=== PATIENT | female | born 1965 | race Caucasian/White ===

== ENCOUNTER 2020-09-13 10:22 | Outpatient (REF) | payer OTHER, SELFPAY ==
--- NOTE | 2020-09-13 10:27 | MM_ITS ---
EXAMINATION: MM SCREENING DIGITAL BREAST TOMOSYNTHESIS, BILATERAL CLINICAL INFORMATION: Screening. Asymptomatic. The lifetime risk of breast cancer based on the Tyrer-Cuzick Model is 18%. COMPARISON: Mammography: 09/08/2019, 08/05/2018, 07/16/2017 TECHNIQUE: Digital breast tomosynthesis is performed in both the craniocaudal and mediolateral oblique views along with computer-aided detection (CAD). Synthesized 2D images are generated from the tomosynthesis. Additional left CC view is provided. FINDINGS: There are scattered areas of fibroglandular density (ACR BI-RADS breast composition Category b). There are no significant masses, abnormal calcifications, or other abnormalities. Parenchymal pattern is similar to prior studies. No developing density. No significant changes. MM/MM tomosynthesis screening BI IMPRESSION: No mammographic evidence of malignancy. ASSESSMENT: BI-RADS 1: Negative RECOMMENDATION: Routine annual mammography screening. This patient's information was entered into a reminder system with a target due date for their next mammogram.
== END 2020-09-13 10:23 | disposition home or self-care (01) ==
LOC: HO.MAMMO 10:22
PROVIDERS: Visit Provider Obstetrics & Gynecology Gynecology
DX: Z12.31 Encounter for screening mammogram for malignant neoplasm of breast (principal)
CPT/HCPCS: 77063; 77067

== ENCOUNTER 2021-09-19 10:38 | Outpatient (REF) | payer OTHER, SELFPAY ==
--- NOTE | ~2021-09-19 | MM_ITS ---
EXAMINATION: MM SCREENING DIGITAL BREAST TOMOSYNTHESIS, BILATERAL CLINICAL INFORMATION: Screening. Asymptomatic. The lifetime risk of breast cancer based on the Tyrer-Cuzick Model is 18%. COMPARISON: Mammography: 09/13/2020, 09/08/2019, 08/05/2018 TECHNIQUE: Digital breast tomosynthesis is performed in both the craniocaudal and mediolateral oblique views along with computer-aided detection (CAD). Synthesized 2D images are generated from the tomosynthesis. FINDINGS: There are scattered areas of fibroglandular density (ACR BI-RADS breast composition Category b). There are no significant masses, abnormal calcifications, or other abnormalities. There are no significant changes from prior studies. MM/MM tomosynthesis screening BI IMPRESSION: No mammographic evidence of malignancy. ASSESSMENT: BI-RADS 1: Negative RECOMMENDATION: Routine annual mammography screening. This patient's information was entered into a reminder system with a target due date for their next mammogram.
== END 2021-09-19 10:39 | disposition home or self-care (01) ==
LOC: HO.MAMMO 10:38
PROVIDERS: PCP Physician Assistant Medical; Visit Provider Physician Assistant Medical
DX: Z12.31 Encounter for screening mammogram for malignant neoplasm of breast (principal)
CPT/HCPCS: 77063; 77067

== ENCOUNTER 2022-09-25 10:24 | Outpatient (REF) | payer BC, SELFPAY ==
--- NOTE | ~2022-09-25 | MM_ITS ---
EXAMINATION: MM SCREENING DIGITAL BREAST TOMOSYNTHESIS, BILATERAL CLINICAL INFORMATION: Screening. Asymptomatic. Family history breast cancer, sister. The lifetime risk of breast cancer based on the Tyrer-Cuzick Model is 19.5%. COMPARISON: Mammography: 09/19/2021, 09/13/2020, 09/08/2019, 08/05/2018 TECHNIQUE: Digital breast tomosynthesis is performed in both the craniocaudal and mediolateral oblique views along with computer-aided detection (CAD). Synthesized 2D images are generated from the tomosynthesis. FINDINGS: There are scattered areas of fibroglandular density (ACR BI-RADS breast composition Category b). There are no significant masses, abnormal calcifications, or other abnormalities. Parenchymal pattern is similar to prior studies. There is no developing density or architectural abnormality. The axilla and skin contours are unremarkable. No significant changes. MM/MM tomosynthesis screening BI IMPRESSION: No mammographic evidence of malignancy. ASSESSMENT: BI-RADS 1: Negative RECOMMENDATION: Routine annual mammography screening. This patient's information was entered into a reminder system with a target due date for their next mammogram.
== END 2022-09-25 10:25 | disposition home or self-care (01) ==
LOC: HO.MAMMO 10:24
PROVIDERS: PCP Physician Assistant Medical; Visit Provider Physician Assistant Medical
DX: Z12.31 Encounter for screening mammogram for malignant neoplasm of breast (principal)
CPT/HCPCS: 77063; 77067

== ENCOUNTER 2023-10-08 10:18 | Outpatient (REF) | payer BC, SELFPAY ==
--- NOTE | ~2023-10-08 | MM_ITS ---
EXAMINATION: MM SCREENING DIGITAL BREAST TOMOSYNTHESIS, BILATERAL CLINICAL INFORMATION: Screening scheduled. At the time of the screening examination, the patient indicated that she has had lateral right breast pain for one month. She denies lumps and other symptoms. The patient wished to proceed with the screening study on the day of the exam. COMPARISON: Mammography: This study is compared with prior exams dating back to 2019. TECHNIQUE: Digital breast tomosynthesis is performed in both the craniocaudal and mediolateral oblique views along with computer-aided detection (CAD). Synthesized 2D images are generated from the tomosynthesis. FINDINGS: There are scattered areas of fibroglandular density (ACR BI-RADS breast composition Category b). There is an asymmetry in the central portion of the right breast. Additional mammographic and targeted sonographic evaluation of this finding is advised. When the patient returns for diagnostic imaging, if she should have additional a whole breast ultrasound on the right given her symptomatology lateral breast pain. In the left breast, there are no significant masses, abnormal calcifications, or other abnormalities. MM/MM tomosynthesis screening BI IMPRESSION: Asymmetry of the right breast warrants additional mammographic and sonographic evaluation. When the patient returns for diagnostic imaging, if she should have additional a whole breast ultrasound on the right given her symptomatology lateral breast pain. No mammographic signs of malignancy left breast. ASSESSMENT: BI-RADS BI-RADS 0 - Incomplete: Needs additional Imaging. RECOMMENDATION: 1. Additional views of the right breast 2. Right breast ultrasound for the patient's lateral breast pain is advised. 3. Radiology department staff will contact the patient for additional imaging. Additional Imaging required This examination should not preclude the clinical evaluation of a suspicious palpable abnormality. This patient's information was entered into a reminder system with a target due date for their next mammogram.
== END 2023-10-08 10:19 | disposition home or self-care (01) ==
LOC: HO.MAMMO 10:18
PROVIDERS: PCP Physician Assistant Medical; Visit Provider Physician Assistant Medical
DX: Z12.31 Encounter for screening mammogram for malignant neoplasm of breast (principal)
CPT/HCPCS: 77063; 77067

== ENCOUNTER → 2023-10-08 10:30 | Outpatient (BNV) | payer BC, SELFPAY | PROVIDERS: PCP Physician Assistant Medical; Visit Provider Radiology Diagnostic Radiology | DX: Z12.31 Encounter for screening mammogram for malignant neoplasm of breast (principal) | CPT/HCPCS: 77063; 77067 ==

== ENCOUNTER 2023-11-14 13:53 | Outpatient (REF) | payer BC, SELFPAY ==
--- NOTE | ~2023-11-14 | MM_ITS ---
EXAMINATION: MM DIAGNOSTIC DIGITAL BREAST TOMOSYNTHESIS, RIGHT US BREAST LIMITED, RIGHT MAMMOGRAPHY: CLINICAL INFORMATION: Diagnostic from screening for central asymmetry right breast. Patient also complaining of right breast pain laterally 7-10 o'clock axis. COMPARISON: Mammography: 10/08/2023, 09/25/2022, 09/19/2021, 09/13/2020, and dating back to 2013. TECHNIQUE: Digital breast tomosynthesis is performed in the following views: Right 3-D digital full-field mediolateral view, 3-D spot compression right cc views x2, and MLO views x1. FINDINGS: There are scattered areas of fibroglandular density (ACR BI-RADS breast composition Category b). The central asymmetry seen on mammography within the central right breast does not persist on diagnostic views and is consistent with overlap of normal fibroglandular tissues (summation artifact). No persistent mass, suspicious calcifications, or areas of architectural distortion. Mildly prominent islands of normal tissue noted in the central right breast, which have similar configuration to numerous priors. ULTRASOUND: CLINICAL INFORMATION: Diagnostic from screening for central asymmetry right breast. Patient also complaining of right breast pain laterally 7-10 o'clock axis. COMPARISON: None contributory. TECHNIQUE: Targeted sonographic evaluation was performed using a high frequency linear transducer. Right breast was scanned to include the central region as well as the 6:00 to 2:00 axes. Selected archived documentation. FINDINGS: RIGHT BREAST: There is a mixture of fatty and fibroglandular tissue. No suspicious mass is seen. There is no pathologic acoustic shadowing. There is no cystic abnormality. Specifically, there is no correlation on sonography with lateral breast pain or a central asymmetry. MM/MM tomosynthesis added views R IMPRESSION: No findings suspicious for malignancy within the right breast. Central asymmetry does not persist on diagnostic views and is consistent with summation artifact. There is no ultrasonographic or mammographic correlate to the lateral breast pain. Recommend clinical management. Otherwise, recommend resuming routine annual screening mammography. OVERALL ASSESSMENT: Mammography: BI-RADS 2 - Benign Findings Ultrasound: BI-RADS 2 - Benign Findings RECOMMENDATION: 1 year F/U Results were provided to the patient at time of visit by the technologist. This patient's information was entered into a reminder system with a target due date for their next mammogram.
== END 2023-11-14 13:54 | disposition home or self-care (01) ==
LOC: HO.MAMMO 13:53
PROVIDERS: PCP Physician Assistant Medical; Visit Provider Physician Assistant Medical
DX: R92.8 Other abnormal and inconclusive findings on diagnostic imaging of breast (principal)
CPT/HCPCS: 76642; 77061; 77065

== ENCOUNTER → 2023-11-14 14:00 | Outpatient (BNV) | payer BC, SELFPAY | PROVIDERS: PCP Physician Assistant Medical; Visit Provider Radiology Diagnostic Radiology | DX: N64.89 Other specified disorders of breast (principal) | CPT/HCPCS: 76642; 77061; 77065 ==

== ENCOUNTER 2025-08-03 10:11 | Outpatient (REF) | payer BC, SELFPAY ==
--- OUTSIDE RECORDS SUMMARY | 2025-08-03 10:15 | XMS_ITS ---
Author Name [facility] Organization Unknown History of Medication Use Medication Directions Dispensed Refills Start Date End Date Status Zepbound 7.5 mg/0.5 mL injection INJECT 1 PEN (7.5 MG TOTAL) UNDER THE SKIN ONCE A WEEK. 05/06/20 active valsartan (DIOVAN) 320 mg tablet Take 1 tablet (320 mg total) by mouth 1 (one) time each day. 08/29/20 active doxycycline (VIBRAMYCIN) 100 MG capsule Take 1 capsule (100 mg total) by mouth 2 (two) times a day. Take each dose with a full glass of water, avoid laying down for one hour after each dose. Avoid direct sunlight. 08/27/202022 active albuterol (PROVENTIL HFA; VENTOLIN HFA) 108 (90 Base) MCG/ACT inhaler Inhale 2 puffs 4 times daily (every 6 hours) as needed for wheezing or shortness of breath. 08/27/20 active methylPREDNISolone (MEDROL DOSEPAK) 4 MG tablet Take one row every morning with food X 6 days. Avoid NSAIDs like motrin. Tylenol is ok if needed 08/27/20 active proMETHAZINE-dextrome thorphan (proMETHAZINE-DM) 6.25-15 MG/5ML syrup Take 5 mL by mouth every 4 (four) hours as needed for cough. Caution can be sedating 08/27/20 active albuterol sulfateInhale 2 (inhalation) every 4 hours [id number] aerosol inhalerevery 4 hoursinhalationNo set duration recordedNo set duration amount raikkmneplpful39aia/ac tuation 07/19/20 active promethazine-DMTake 5 ml (oral) every 4 [id number] y 4 hoursoralNo set duration recordeddaysactive6.25 -15mg/5 mL 09/19/20 23 active prednisoneTake 2 tablet (oral) 1 time per day for 5 [id number] time per djejdwg3bvgdgewqspnbd1 0mg 07/19/20 23 suspended Semaglutide-Weight Management (Wegovy) 0.25 MG/0.5ML Solution Auto-injector Inject 0.25 mg under the skin once a week. 01/27/20 active valsartanTake (oral)[id number] frequency recordedoralNo set duration recordedNo set duration amount tuzgcbvtopyedv250yg 01/16/20 active furosemideTake (oral)[id number] frequency recordedoralNo set duration recordedNo set duration amount njasmuwbpvzxqe88pd 01/16/20 active furosemide (LASIX) 20 MG tablet Take 1 tablet (20 mg total) by mouth every morning. 01/16/20 23 active valsartan (DIOVAN) 320 MG tablet TAKE 1 TABLET BY MOUTH EVERY DAY 01/16/20 23 active calcipotriene (DOVONEX) 0.005 % ointment APPLY TO RASH FEET AND ELBOWS 2 TIMES A DAY 01/05/20 23 active halobetasol (ULTRAVATE) 0.05 % ointment APPLY TO FEET 2 TIMES A DAY WITH CALCIPOTRIENE 01/05/20 23 active Insulin Pen Needle (Pen [place]) 32G X 4 MM Misc use once weekly with Ozempic 02/16/20 22 active AugmentinTake 1 tabl et (Oral) 2 times per day for 7 [id number] times per fsdBtjf0jwwopooaoglub3 75-125mg 12/05/19 22 suspended ketoconazole (NIZORAL) 2 % shampoo APPLY TO SCALP EVERY OTHER DAY FOR 5 MINUTES AND RINSE. 07/18/20 21 active ascorbic acid (VITAMIN C) 250 MG tablet Take 1 tablet by mouth daily. 02/17/20 21 active cholecalciferol (CHOLECALCIFEROL) 25 MCG (1000 UT) tablet Take 1 tablet by mouth daily. 02/17/20 21 active Multiple Vitamin (Multi-Vitamin) tablet Take 1 tablet by mouth daily. 02/17/20 21 active triamcinolone (KENALOG) 0.1 % cream APPLY AND RUB IN A THIN FILM TO AFFECTED AREA ON HANDS TID PRN 02/17/20 21 active methocarbamolTake 2 tablet (oral) 3 times per day for 7 [id number] times per imianbs9rpsbfxygnyrvg4 00mg 12/23/19 20 suspended NaprosynTake 1 (oral ) 2 times per day for 5 [id number] times per lqycgyt6zfsdvmwjoamnm0 00mg 12/23/19 20 suspended amlodipineTakeNo bello e recordedNo form recordedNo frequency recordedNo route recordedNo set duration recordedNo set duration amount recordedsuspendedNo dosage strength recordedNo dosage strength units of measure recorded suspended [place] 3-6-9TakeNo da te recordedNo form recordedNo frequency recordedNo route recordedNo set duration recordedNo set duration amount recordedactiveNo dosage strength recordedNo dosage strength units of measure recorded active amLODIPine (NORVASC) 10 mg tablet Take 10 mg by mouth daily. active amLODIPine (NORVASC) 10 MG tablet Take 10 mg by mouth. ac tive furosemide (Lasix) 20 mg tablet Take by mouth. active omega-3 fatty acids (FISH OIL) 1000 MG Cap capsule Take 1,000 mg by mouth 4 (four) times a day. active omega-3 fatty acids (Super [place]-3) 1,000 mg capsule Take 40,000 mg by mouth daily. active Problems Problem Status Onset Date Problem Type Date of Resolution Source COVID-19 active 2023-12-30 3 ProblemAct [facility] hypertension active ProblemAct [facility] Varicose veins of lower extremity active 2023-11-01 6 ProblemAct [facility] Anal fissure active EncounterDiagnosisAct [facility] Anxiety active 2022-12-29 8 ProblemAct [facility] Liver enzyme elevation active 2022-12-29 8 ProblemAct [facility] Vitamin D deficiency active 2022-12-29 8 ProblemAct [facility] Angina pectoris active 2022-12-29 8 [facility]Act [facility] Screen for colon cancer active 2021-03-31 1 ProblemAct [facility] Edema active 2022-12-29 8 [facility]Act [facility] Acquired hypertriglyceridemia active 2022-12-29 8 ProblemAct [facility] SOBOE (shortness of breath on exertion) active 2022-12-29 8 ProblemAct [facility] Hypertension, benign active 2022-12-29 8 ProblemAct [facility] Psoriasis vulgaris active 2022-12-29 8 ProblemAct [facility] Morbid obesity active 2022-12-29 8 ProblemAct [facility] Encounters Encounter Type Encounter Reason Primary Diagnosis Location Date Ambulatory New Patient New Patient [facility] 06/11/2025 Ambulatory [facility] 03/12/2025 Ambulatory Gas pain Gas pain [facility] 09/21 Ambulatory Essential (primary) hypertension Essential (primary) hypertension [facility] 09/19/2024 Ambulatory Acute bronchitis due to other specified organisms Acute bronchitis due to other specified organisms [facility] 08/27/2023 Ambulatory [facility] 07/19/2023 Ambulatory [facility] 01/15/2023 Care Team Organization Name Specialty Phone Email Start Date End [facility] 03/13/2025 025 [facility] 03/12/2025 04/10/2025 [facility]17 [facility] 09/21 [id number] 09/20/2024 03/19/2025 [facility] 04/19/2024 03/19/2025 [facility] 01/25/2024 [facility] Muna Chavez - PCP Support [facility] 01/11/2024 [facility] GIRISH CHENG Primary Care 11/20/2023 [facility] 07/19/2023 07/19/2023 [facility] 07/19/2023 [facility] MUNA CHAEVZ Primary Care 01/15/202304/10 [facility] 01/15/2023 01/15/2023 [facility] 10/01/2022 06/18/2024
--- OUTSIDE RECORDS SUMMARY | 2025-08-03 10:15 | XMS_ITS | Clinical Summary ---
Author Organization [facility] Address [address] [place] [address] Care Team Providers Care Vice President Regulatory Name Role Phone Muna Fong Primary Care Provider +1- [phone] Allergies No known active allergies Medications Medication Sig Dispensed Refills Start Date End Date Status amLODIPine (NORVASC) tablet 10 mg Take 10 mg by mouth daily. 0 Active [place]-3 1000 MG CAPS Take 40,000 mg by mouth daily. 0 Active Active Problems Problem Noted Date Diagnosed Date Tobacco user 11/25/2023 11/25/2023 Varicose veins of lower extremity 11/25/2023 11/25/2023 Screen for colon cancer 04/10/2021 Overview: Added automatically from request for surgery [id number] Social History Tobacco Use Types Packs/Day Years Used Date Smoking Tobacco: Never Smokeless Tobacco: Never Alcohol Use Standard Drinks/Week Comments Yes 0 (1 standard drink = 0.6 oz pur e alcohol) few drinks per week Sex and Gender Information Value Date Recorded Sex Assigned at Female 04/17/2021 1:12 PM EDT Gender Identity Female 06/11/2021 10:07 AM EDT Sexual Orientation Straight 06/11/2021 10 :07 AM EDT Job Start Date Occupation Industry Not on file Not on file Not on file Last Filed Vital Signs Vital Sign Reading Time Taken Comments Blood Pressure 138/83 06/11/2021 11:35 AM EDT Pulse 72 06/11/2021 11:35 AM EDT Temperature 36.8 C (98.3 F) 06/11/2021 10:07 AM EDT Respiratory Rate 18 06/11/2021 11:35 AM EDT Oxygen Saturation 99% 06/11/2021 11:35 AM EDT Inhaled Oxygen Concentration - - Weight 95.3 kg (210 lb) 06/09/2021 4:44 PM EDT Height 170.2 cm (5' 7 ) 06/09/2021 4:44 PM EDT Body Mass Index 32.89 06/09/2021 4:44 PM EDT Plan of Treatment Health Maintenance Due Date Last Done Comments Hepatitis C Screening 1965 COVID-19 Vaccine (#1) 1963 Depression Screening 1975 BMI Counseling 1981 Preventative Health Evaluation 1981 DTap / Tdap / Td (1 - Tdap) 1982 Cervical Cancer Screening (P ap Smear) 1984 Breast Cancer Screening (Mammogram) 2013 Shingrix-Zoster Vaccine (1 of 2) 2013 Influenza Vaccine (#1) 2025 Colon Cancer Screening (Colonoscopy) 06/11/2031 06/11/2021 RSV Adult > 60+ Yrs or Pregn ant (1 - 1-dose 75+ series) 2038 Hepatitis B Vaccines Aged Out No long er eligible based on patient's age to complete this topic Pneumococcal Vaccine Aged Out No long er eligible based on patient's age to complete this topic RSV Ped < 20 months Aged Out No longe r eligible based on patient's age to complete this topic Advance Directives For more information, please contact: [phone] Latest Code Status on File Code Status Date Activated Date Inactivated Comments Full Code 06/11/2021 11:12 AM 06/11/2021 5:55 PM This code status was ascertained in the following way: discussion with patient . Care Teams Vice President Regulatory Relationship Specialty Start Date End Date Muna Fong PA PCP - General Physician Embroidery Finisher 04/08/21
--- OUTSIDE RECORDS SUMMARY | 2025-08-03 10:15 | XMS_ITS | Encounter Summary ---
Author Organization [facility] Address [address] [place] [address] Care Team Providers Care Statement Request Clerk Name Role Phone Muna Fong Primary Care Provider +1- [phone] Encounter Details Date Type Department Care Team (Late st Contact Info) Description 02/21/2023 Scanned Document [facility] of [facility] [place] [address] [place] [address] Muna Fong PA [address] [place] [address] Social History Tobacco Use Types Packs/Day Years Used Date Smoking Tobacco: Never Smokeless Tobacco: Never Alcohol Use Standard Drinks/Week Comments Yes 14 (1 standard drink = 0.6 oz pu re alcohol) Comments Unknown Sex and Gender Information Value Date Recorded Sex Assigned at Female 01/15/2023 2:44 PM EDT Legal Sex Female 6:26 PM EST Gender Identity Female 01/15/2023 2:44 PM EDT Sexual Orientation Choose not to disclose 2022 2:44 PM EDT documented as of this encounter Plan of Treatment Not on file documented as of this encounter Visit Diagnoses Not on filedocumented in this encounter Care Teams Statement Request Clerk Relationship Specialty Start Date End Date Muna Fong PA [address] [place] [address] PCP - General 11/09/22 documented as of this encounter
--- OUTSIDE RECORDS SUMMARY | 2025-08-03 10:15 | XMS_ITS | Encounter Summary ---
Author Organization [facility] Address [address] [place] [address] Care Team Providers Care Tungsten Tender Name Role Phone Muna Fong Primary Care Provider +1- [phone] Encounter Details Date Type Department Care Team (Late st Contact Info) Description 06/24/2025 Scanned Document [facility] Department of Internal Medicine [place] [address] [place] [address] Muna Fong PA [address] [place] [address] Social History Tobacco Use Types Packs/Day Years Used Date Smoking Tobacco: Never Smokeless Tobacco: Never Alcohol Use Standard Drinks/Week Comments Yes 14 (1 standard drink = 0.6 oz pu re alcohol) Comments No Sex and Gender Information Value Date Recorded [...] on filedocumented in this encounter Care Teams Tungsten Tender Relationship Specialty Start Date End Date Muna Fong PA [address] [place] [address] PCP - General 11/09/22 documented as of this encounter
--- OUTSIDE RECORDS SUMMARY | 2025-08-03 10:15 | XMS_ITS | Clinical Summary ---
Author Organization [facility] Address [address] [place] [address] Care Team Providers Care Umbrella Tipper Name Role Phone Muna Fong Primary Care Provider [phone]- [phone] Allergies No known active allergies Medications ascorbic acid (VITAMIN C) 250 MG tablet Take 1 tablet by mouth daily. 1 Active cholecalciferol (CHOLECALCIFEROL ) 25 MCG (1000 UT) tablet Take 1 tablet by mouth daily. 1 Active Multiple Vitamin (Multi-Vitamin) tablet Take 1 tablet by mouth daily. 1 Active omega-3 fatty acids (FISH OIL) 1000 MG Cap capsule Take 1,000 mg by mouth 4 (four) times a day. Active furosemide (LASIX) 20 MG tablet Take 20 mg by mouth daily. Active albuterol (PROVENTIL HFA; VENTOLIN HFA) 108 (90 Base) MCG/ACT inhalerIndicatio ns:Acute bacterial bronchitis Inhale 2 puffs 4 times daily (every 6 hours) as needed for wheezing or shortness of breath. 1 each 3 Active amLODIPine (NORVASC) 10 MG tabletIndication s:Hypertension, benign TAKE 1 TABLET BY MOUTH EVERY DAY 90 tablet 1 5 Active tirzepatide (Zepbound) 12.5 mg/0.5 mL pen-injectorIndi cations:Class 2 severe obesity due to excess calories with serious comorbidity and body mass index (BMI) of 39.0 to 39.9 in adult Inject 1 Pen (12.5 mg total) under the skin once a week. 6 mL 5 Active valsartan (DIOVAN) 320 MG tabletIndication s:Morbid obesity (HCC),Hypertensi on, benign TAKE 1 TABLET BY MOUTH EVERY DAY 90 tablet 5 Active Active Problems Problem Noted Date Diagnosed Date BMI 39.0-39.9,adult 03/12/2025 Annual physical exam 09/19/2024 Assessment & Plan (09/19/2024 8:28 AM EST): She will see when she is due for pap with OBGYN Mammo due Oct 2024 Acquired hypertriglyceridemia 01/15/2023 Anxiety 01/15/2023 Vitamin D deficiency 01/15/2023 Class 2 obesity in adult 01/15/2023 Assessment & Plan (09/19/2024 8:28 AM EST): She has adjusted her diet and exercise regimen and has lost 27lbs. Commended her on healthy routine. Hypertension, benign 01/15/2023 Assessment & Plan (09/19/2024 8:26 AM EST): May be primary hypertension but given degree of elevation despite being on valsartan 320 and furosemide 20mg, will screen for resistant hypertension. Check renin/darryl levels and plasma metanephrines. May be due to alcohol but she has cut back on alcohol. Advised switching to Tylenol and avoiding NSAIDs. No signs of sleep apnea and no caffeine. - restart amlodipine 10mg daily - continue valsartan 320mg daily - continue furosemide - would change at future visits to hydrochlorothiazide, chlorthalidone or torsemide Edema 01/15/2023 Psoriasis vulgaris 01/15/2023 SOBOE (shortness of breath on exertion) 01/16/20 23 Liver enzyme elevation 01/15/2023 Screen for colon cancer 04/10/2021 Overview (01/15/2023): Added automatically from request for surgery [id number] Assessment & Plan (09/19/2024 8:27 AM EST): She is seeing GI this week and will check when her next colonoscopy is due Resolved Problems Problem Noted Date Diagnosed Date Resolved Date Angina pectoris 01/15/2023 09/19/2024 Encounters Date Type Department Care Team Description 06/29/2025 Refill [facility] [place] [address] [place] [phone] Muna Fong PA Morbid obesity (HCC); Hypertension, benign 06/25/2025 Refill [facility] [place] [address] [place] [phone] Muna Fong PA Class 2 severe obesity due to excess calories with serious comorbidity and body mass index (BMI) of 39.0 to 39.9 in adult (HCC) (Primary Dx) 06/25/2025 Refill [facility] [place] [address] [place] [phone] Muna Fong PA Class 2 severe obesity due to excess calories with serious comorbidity and body mass index (BMI) of 39.0 to 39.9 in adult (HCC) (Primary Dx); Class 2 severe obesity due to excess calories with serious comorbidity and body mass index (BMI) of 38.0 to 38.9 in adult (HCC) 06/24/2025 Scanned Document [facility] [place] [address] [place] [phone] Muna Fong PA 05/29/2025 Refill [facility] Department of Internal Medicine [place] [address] [place] [phone] Muna Fong PA Class 2 severe obesity due to excess calories with serious comorbidity and body mass index (BMI) of 38.0 to 38.9 in adult (HCC) (Primary Dx) 05/28/2025 Orders Only [facility] Department of Internal Medicine [place] [address] [place] [phone] Muna Fong PA Class 2 severe obesity due to excess calories with serious comorbidity and body mass index (BMI) of 38.0 to 38.9 in adult (HCC) (Primary Dx) from Last 3 Months Family History Medical History Relation Name Comments Prostate cancer Brother Brain cancer Father Acute lymphoblastic leukemia Mother Breast cancer Sister Relation Name Status Comments Brother Father Mother Sister Social History Tobacco Use Types Packs/Day Years Used Date Smoking Tobacco: Never Smokeless Tobacco: Never Tobacco Cessation:Counseling Given: Not Answered Alcohol Use Standard Drinks/Week Comments Yes 14 (1 standard drink = 0.6 oz pu re alcohol) Comments No Sex and Gender Information Value Date Recorded Sex Assigned at Female 01/15/2023 2:44 PM EDT Legal Sex Female 6:26 PM EST Gender Identity Female 01/15/2023 2:44 PM EDT Sexual Orientation Choose not to disclose 2022 2:44 PM EDT Last Filed Vital Signs Vital Sign Reading Time Taken Comments Blood Pressure 178/94 09/19/2024 7:50 AM EST Pulse 85 09/19/2024 7:50 AM EST Temperature - - Respiratory Rate - - Oxygen Saturation 96% 09/19/2024 7:50 AM EST Inhaled Oxygen Concentration - - Weight 116 kg (255 lb) 03/12/2025 8:38 AM EDT Height 170.2 cm (5' 7 ) 03/12/2025 8:38 AM EDT Body Mass Index 39.94 03/12/2025 8:38 AM EDT Plan of Treatment Health Maintenance Due Date Last Done Comments Hepatitis C Virus Screening 1965 HIV Screening 1976 DTaP/Tdap/Td Vaccines (1 - Tdap) 1982 Pap Smear (Ages 21-65) 1984 Colonoscopy 2008 Pneumococcal Vaccines 50+ (1 of 1 - PCV) 2013 Zoster (Shingles) Vaccine (1 of 2) 2013 RSV Vaccine 60 years and older and Patients (1 - Risk 60-74 years 1-dose series) 2023 Mammogram 11/01/2024 11/01/2022 (Previously Completed) Influenza Vaccine 05/31/2025 07/10/2021 COVID-19 Vaccine (3 - 2024-2 6 season) 2025 11/09/2021, 03/09/2021, 02/07/2021 Hepatitis B Vaccines Aged Out No long er eligible based on patient's age to complete this topic Insurance [employer] PPO Care Teams Umbrella Tipper Relationship Specialty Start Date End Date Muna Fong PA [address] [place] [address] PCP - General 11/09/22
--- OUTSIDE RECORDS SUMMARY | 2025-08-03 10:15 | XMS_ITS | Encounter Summary ---
Author Organization [facility] Address [address] [place] [address] Care Team Providers Care Rooter Operator Name Role Phone Muna Fong Primary Care Provider +1- [phone] Encounter Details Date Type Department Care Team (Late st Contact Info) Description 01/11/2024 Scanned Document [facility] Department of Internal Medicine [place] [address] [place] [address] Muna Fong PA [address] [place] [address] Social History Tobacco Use Types Packs/Day Years [...] on filedocumented in this encounter Care Teams Rooter Operator Relationship Specialty Start Date End Date Muna Fong PA [address] [place] [address] PCP - General 11/09/22 documented as of this encounter
--- OUTSIDE RECORDS SUMMARY | 2025-08-03 10:15 | XMS_ITS | Encounter Summary ---
Author Organization [facility] Address [address] [place] [address] Care Team Providers Care Real Estate Sales Supervisor Name Role Phone Muna Fong Primary Care Provider +1- [phone] Encounter Details Date Type Department Care Team (Late st Contact Info) Description 09/24/2024 Scanned Document [facility] of Internal Medicine [place] [address] [place] [address] Muna Fong PA [address] [place] [address] Social History Tobacco Use Types Packs/Day Years [...] on filedocumented in this encounter Care Teams Real Estate Sales Supervisor Relationship Specialty Start Date End Date Muna Fong PA [address] [place] [address] PCP - General 11/09/22 documented as of this encounter
--- OUTSIDE RECORDS SUMMARY | 2025-08-03 10:15 | XMS_ITS | Clinical Summary ---
Author Organization [facility] Address [address] [place] [address] Care Team Providers Care Chute Puller Name Role Phone Muna Fong Primary Care Provider Allergies No known active allergies Medications amLODIPine (NORVASC) 10 mg tablet Take 10 mg by mouth daily. Active omega-3 fatty acids (Super [place]-3) 1,000 mg capsule Take 40,000 mg by mouth daily. Active valsartan (DIOVAN) 320 mg tablet Take 1 tablet (320 mg total) by mouth 1 (one) time each day. 08/29/2023 Active Zepbound 7.5 mg/0.5 mL injection INJECT 1 PEN (7.5 MG TOTAL) UNDER THE SKIN ONCE A WEEK. 05/06/2025 Active furosemide (Lasix) 20 mg tablet Take by mouth. Active ESOMEPRAZOLE MAGNESIUM ORAL Take by mouth. Active Active Problems Problem Noted Date Diagnosed Date Varicose veins of lower extremity 11/25/2023 Encounters Date Type Department Care Team Description 06/11/2025 4:00 PM EDT [facility] Visit [facility] [address] [place] [address] Karl Espino MD Anal fissure (Primary Dx) 06/07/2025 Telephone [facility] [address] [place] [address] Sofy Dejesus LPN from Last 3 Months Surgical History Surgery Date Site/Laterality Comments SECTION PROCEDURE: SECTION COSMETIC SURGERY PROCEDURE:COSMETIC SURGERY;COMMENT:abdominoplasty VEIN SURGERY PROCEDURE:VEIN SURGERY;COMMENT:vein stripping bilateral legs FACIAL FRACTURE SURGERY PROCEDURE:FACIAL FRACTURE SURGERY Medical History Medical History Date Comments Hypertension DX:Hypertension Social History Tobacco Use Types Packs/Day Years Used Date Smoking Tobacco: Former Cigarettes Smokeless Tobacco: Never Tobacco Cessation:Counseling Given: Not Answered Alcohol Use Standard Drinks/Week Comments Yes 0 (1 standard drink = 0.6 oz pur e alcohol) occ Comments Unknown Sex and Gender Information Value Date Recorded Sex Assigned at Not on file Legal Sex Female 12:39 AM EST Gender Identity Not on file Sexual Orientation Not on file Obstetrics History Last Filed Vital Signs Vital Sign Reading Time Taken Comments Blood Pressure 144/88 06/11/2025 3:29 PM EDT Pulse - - Temperature - - Respiratory Rate - - Oxygen Saturation - - Inhaled Oxygen Concentration - - Weight 113 kg (250 lb) 06/11/2025 3:29 PM EDT Height 170.2 cm (5' 7 ) 06/11/2025 3:29 PM EDT Body Mass Index 39.16 06/11/2025 3:29 PM EDT Plan of Treatment Upcoming Encounters Date Type Department Care Team (Late st Contact Info) Description 08/21/2025 4:15 PM EDT Office Visit [facility] [address] [place] [phone] Karl Espino MD [facility] [address] [address] Health Maintenance Due Date Last Done Comments Breast Cancer Screening 1965 DTaP,Tdap,and Td Vaccines (1 - Tdap) 1982 Cervical Cancer Screening: P ap Smear 1984 Pneumococcal Vaccine: 50+ Ye ars (1 of 1 - PCV) 2013 Zoster Vaccines (1 of 2) 2013 Cholesterol Screening (Lipid Panel) 10/03/2022 HIV Screening 10/03/2022 Hepatitis C Screening 10/03/2022 Social Influencers of Health Screening 10/03/2022 Hypertension/CHF/CAD Annual BMP Blood Test 09/21/2024 Depression Screening 10/31/2024 COVID-19 Vaccine (1 - 2023-2 5 season) 2025 Influenza Vaccine (#1) 2025 Colorectal Cancer Screening: Colonoscopy 06/11/2031 06/11/2021 RSV Immunization Adult Patie nts (1 - 1-dose 75+ series) 2038 HIB Vaccines Aged Out No longer eligi ble based on patient's age to complete this topic HPV Vaccines Aged Out No longer eligi ble based on patient's age to complete this topic Hepatitis A Vaccines Aged Out No long er eligible based on patient's age to complete this topic Hepatitis B Vaccines Aged Out No long er eligible based on patient's age to complete this topic IPV Vaccines Aged Out No longer eligi ble based on patient's age to complete this topic MMR Vaccines Aged Out No longer eligi ble based on patient's age to complete this topic Meningococcal ACWY Vaccine Aged Out N o longer eligible based on patient's age to complete this topic Meningococcal B Vaccine Aged Out No l onger eligible based on patient's age to complete this topic RSV Immunization Patients Un tiki 20 months Aged Out No longer eligible b ased on patient's age to complete this topic Varicella Vaccines Aged Out No longer eligible based on patient's age to complete this topic Procedures Procedure Name Priority Date/Time Associated Diagnosis Comments COLONOSCOPY Routine 06/11/2021 from Last 3 Months or Most Recently Relevant to Health Maintenance Results * Colonoscopy (06/11/2021) Colonoscopy no interpretatio n, abstracte Anatomical Region Laterality Modality Other Historical Provider HEALTH MAINTENANCE Final Result from Last 3 Months or Most Recently Relevant to Health Maintenance Insurance [facility] Member Subscriber Plan / Payer (Ef fective 2023-Present) Name:KARMEN SAHA Member ID:[id number] Relation to Subscriber:Spouse Name:TYLER SAHA Subscriber ID:[id number] Date of :1965 (Home) Address: [facility] [place] [address] Payer ID:[id number] (NA) Type:Not on file Address: [address] [place] [address] [facility] Advance Directives Documents on File Type Date Recorded Patient Excavating Supervisor Expl anation Advance Directives and Living Will 09/24/2024 1:26 PM CONSET TO BILL Care Teams Chute Puller Relationship Specialty Start Date End Date Muna Fong PA [address] [place] [address] PCP - General Physician Material Control Specialist 04/08/21
--- OUTSIDE RECORDS SUMMARY | 2025-08-03 10:15 | XMS_ITS | Encounter Summary ---
Author Organization [facility] Address [address] [place] [address] Care Team Providers Care Sales/Marketing Name Role Phone Muna Fong Primary Care Provider +1- [phone] Encounter Details Date Type Department Care Team (Late st Contact Info) Description 07/19/2023 Scanned Document [facility] [place] [address] [place] [address] Muna Fong PA [address] [place] [address] Social History Tobacco Use Types Packs/Day Years [...] on filedocumented in this encounter Care Teams Sales/Marketing Relationship Specialty Start Date End Date Muna Fong PA [address] [place] [address] PCP - General 11/09/22 documented as of this encounter
== END 2025-08-03 10:12 | disposition home or self-care (01) ==
LOC: HO.MAMMO 10:11
PROVIDERS: PCP Physician Assistant Medical; Visit Provider Physician Assistant Medical
DX: Z12.31 Encounter for screening mammogram for malignant neoplasm of breast (principal)
CPT/HCPCS: 77063; 77067

== ENCOUNTER → 2025-08-03 10:30 | Outpatient (BNV) | payer BC, SELFPAY | PROVIDERS: PCP Physician Assistant Medical; Visit Provider Internal Medicine | DX: Z12.31 Encounter for screening mammogram for malignant neoplasm of breast (principal) | CPT/HCPCS: 77063; 77067 ==